=== PATIENT | male | born 1935 | race Caucasian/White ===

== ENCOUNTER 2016-09-04 21:14 | Emergency (ER) | payer MEDICARE, OTHER ==
[2016-09-05] MEDS ORDERED: AMOXICILLIN TR/POT CLAVULANATE 500-125 MG TAB PO ONE (00:58)
[2016-09-05] MEDS ORDERED: AMOXICILLIN TRIHYDRATE 500 MG CAPSULE PO ONE (00:59)
--- NOTE | 2016-09-05 01:01 | ER Document Report ---
ED Animal Bite - General Chief Complaint: Dog Bite Stated Complaint: POSSIBLE DOG BITE Time Seen by Provider: 09/05/16 00:03 Notes: Patient is a 80 year old male that comes to the ED for chief complaint of dog bite with skin tears to his right hand. Patient states that the dog is his son's , he reached over to pet the dog and it snapped at him. Dog is vaccinated. No other injuries reported. He is on Eliquis. Tetanus UTD within 5 years. TRAVEL OUTSIDE OF THE [place] IN LAST 30 DAYS: No - Related Data Allergies/Adverse Reactions: Antacid * [Antacid] Allergy (Unknown, Verified 09/04/16 21:42) cefuroxime [Cefuroxime] Allergy (Unknown, Verified 09/04/16 21:42) fluconazole [Fluconazole] Allergy (Unknown, Verified 09/04/16 21:42) adhesive tape Allergy (Verified 09/04/16 21:42) unknown malaria med Allergy (Unknown, Uncoded 09/04/16 21:42) Past Medical History - General Information source: Patient - Social History Smoking Status: Never Smoker Frequency of alcohol use: None Drug Abuse: None Lives with: Spouse/Significant other Family History: Hypertension - Past Medical History Cardiac Medical History: Reports: Hx Atrial Fibrillation, Hx Congestive Heart Failure, Hx Coronary Artery Disease - PACEMAKER/DEFIB, Hx Heart Attack - X4, Hx Hypercholesterolemia, Hx Hypertension Pulmonary Medical History: Reports: Hx COPD Denies: Hx Asthma, Hx Bronchitis, Hx Pneumonia Neurological Medical History: Reports: Hx Cerebrovascular Accident - 1984. Denies: Hx Seizures Endocrine Medical History: Reports: Hx Hypothyroidism Renal/ Medical History: Denies: Hx Peritoneal Dialysis Musculoskeltal Medical History: Reports Hx Arthritis - GENERALIZED Past Surgical History: Reports: Hx Abdominal Surgery - AAA repair, Hx Cardiac Catheterization - x4, Hx Cardiac Surgery - cabgx2, AICD, Hx Cholecystectomy - Immunizations Hx Diphtheria, Pertussis, Tetanus Vaccination: Yes Hx Pneumococcal Vaccination: 12/26/14 Review of Systems - Review of Systems Constitutional: No symptoms reported EENT: No symptoms reported Cardiovascular: No symptoms reported Respiratory: No symptoms reported Gastrointestinal: No symptoms reported Genitourinary: No symptoms reported Male Genitourinary: No symptoms reported Musculoskeletal: See HPI Skin: See HPI Hematologic/Lymphatic: No symptoms reported Neurological/Psychological: No symptoms reported Physical Exam - Vital signs Vitals: Temp Pulse Resp BP Pulse Ox 98.0 F 78 16 128/74 H 96 09/05/16 01:15 09/05/16 01:15 09/05/16 01:15 09/05/16 01:15 09/05/16 01:15 Interpretation: Normal - General General appearance: Appears well In distress: None - HEENT Head: Normocephalic, Atraumatic Eyes: Normal Pupils: PERRL - Respiratory Respiratory status: No respiratory distress Chest status: Nontender Breath sounds: Normal Chest palpation: Normal - Cardiovascular Rhythm: Regular. No: Tachycardia Heart sounds: Normal auscultation, S1 appreciated, S2 appreciated Murmur: No - Abdominal Inspection: Normal Distension: No distension Bowel sounds: Normal Tenderness: Nontender. No: Tender, Guarding Organomegaly: No organomegaly - Back Back: Normal, Nontender - Extremities General upper extremity: Other - Dorsum of the right hand over the area of the third through fifth metacarpals with 2 skin avulsions, skin tear in between them , minimal bleeding noted. No open repairable wounds. Full range of motion of all fingers, normal sensation, no evidence of tendon laceration, normal wrist exam, normal upper extremity exam otherwise. General lower extremity: Normal inspection, Nontender, Normal color, Normal ROM , Normal temperature, Normal weight bearing. No: Vicente's sign - Neurological Neuro grossly intact: Yes Cognition: Normal Orientation: AAOx4 Trevon Coma Scale Eye Opening: Spontaneous [place] Coma Scale Verbal: Oriented [place] Coma Scale Motor: Obeys Commands Trevon Coma Scale Total: 15 Speech: Normal Motor strength normal: LUE, RUE, LLE, RLE Sensory: Normal - Psychological Associated symptoms: Normal affect, Normal mood - Skin Skin Temperature: Warm Skin Moisture: Dry Skin Color: Normal Course - Re-evaluation Re-evalutation: Two large skin avulsions over the dorsum of the right hand. On careful examination there is no evidence of tendon injury, nerve injury, normal neurovascular examination. The wound not repairable, skin tears with avulsions and thin skin that will not sutured together. Dressings placed after thorough cleaning, Xeroform dressing was applied along with nonabsorbent dressing and padding. Wound care discussed. Placing on antibiotic. Discussed close follow- up for recheck of the wound. Patient states that he plans to follow-up with his orthopedic hand surgeon for this. He states he will follow-up with primary care otherwise. Discussed return precautions in detail. Patient states understanding and agreement. states understanding and agreement. - Vital Signs Vital signs: Temp Pulse Resp BP Pulse Ox 98.0 F 78 16 128/74 H 96 09/05/16 01:15 09/05/16 01:15 09/05/16 01:15 09/05/16 01:15 09/05/16 01:15 Discharge - Discharge Clinical Impression: Skin tear Dog bite Qualifiers: Encounter type: initial encounter Qualified Code(s): W54.0XXA - Bitten by dog, initial encounter Hand laceration Qualifiers: Encounter type: initial encounter Foreign body presence: without foreign body Laterality: right Qualified Code(s): S61.411A - Laceration without foreign body of right hand, initial encounter Condition: Stable Disposition: HOME, SELF-CARE Additional Instructions: You can keep the current dressing on for the next 2-3 days (the yellow dressing ; can change gauze dressing and wrap if needed), I recommend being seen on a close follow-up with your provider for a recheck at that point, take the Augmentin antibiotic as directed, you may also want to take a probiotic to avoid diarrhea. Return immediately if you develop any concerning or worsening symptoms including fever, spreading redness, swelling, discolored drainage, or any other concerning symptoms. Prescriptions: Amox Tr/Potassium Clavulanate [Augmentin 875-125 Tablet] 1 tab PO BID 7 Days
[2016-09-05 01:36] VITALS: BP 128/74
== END 2016-09-05 01:15 | disposition home or self-care (01) ==
LOC: ER 21:14
DX: S61.411A Laceration without foreign body of right hand, initial encounter (principal); W54.0XXA Bitten by dog, initial encounter; I48.91 Unspecified atrial fibrillation; I50.9 Heart failure, unspecified; I25.10 Atherosclerotic heart disease of native coronary artery without angina pectoris; J44.9 Chronic obstructive pulmonary disease, unspecified; I25.2 Old myocardial infarction; E78.00 Pure hypercholesterolemia, unspecified; I11.0 Hypertensive heart disease with heart failure; Z95.810 Presence of automatic (implantable) cardiac defibrillator; Z86.73 Personal history of transient ischemic attack (TIA), and cerebral infarction without residual deficits; Z90.49 Acquired absence of other specified parts of digestive tract
CPT/HCPCS: 99283; A9270 ×2

== ENCOUNTER → 2016-11-02 | Day surgery (SDC) | payer MEDICARE, OTHER ==
--- NOTE | 2016-11-02 15:04 | RADIOLOGY REPORT (SQ) ---
EXAM DESCRIPTION: ARTHRO SHOULDER INJECTION; FLUORO/NEEDLE PLACEMENT COMPLETED DATE/TIME: 11/02/2016 2:13 pm REASON FOR STUDY: PAIN IN RIGHT SHOULDER (M25.511) M25.511 PAIN IN RIGHT SHOULDER COMPARISON: None. FLUOROSCOPY TIME: 16 seconds 2 digital images saved to PACS. LIMITATIONS: None. PROCEDURE: Procedure, risks, benefits and alternative explained to patient who then gave written con sent. The right posterior shoulder was marked and a time-out was called for correct marking verifica tion. Posterior entry site marked using fluoroscopic guidance. Shoulder prepped and draped using st erile technique. Local anesthesia achieved using 1% lidocaine injection. 22 gauge spinal needle intr oduced into the joint space under direct fluoroscopic visualization. Non-ionic contrast instilled to confirm intra-articular position. Additional dilute non-ionic contrast instilled. Needle removed a nd entry site covered with sterile bandage. No immediate complications noted. TECHNIQUE: Digital images acquired during fluoroscopy and stored on PACS. Patient immediately take n to the CT suite for additional imaging. INJECTION LOCATION: Posterior right shoulder. CONTRAST TYPE AND AMOUNT: 1 mL of Isovue-300 was injected to confirm intra-articular needle placement , followed by 10 mL of half strength Isovue-[address] arthrogram, dictated separately IMPRESSION: SUCCESSFUL NEEDLE PLACEMENT AND INJECTION FOR RIGHT SHOULDER CT ARTHROGRAM USING POSTERI OR APPROACH. COMMENT: Quality ID 145: Final reports for procedures using fluoroscopy that document radiation exp osure indices, or exposure time and number of fluorographic images (if radiation exposure indices are not available) TECHNICAL DOCUMENTATION: JOB ID: [id number] [employer]- All Rights Reserved
--- NOTE | 2016-11-02 15:33 | RADIOLOGY REPORT (SQ) ---
EXAM DESCRIPTION: CT RT UPPER EXTREMITY WITH COMPLETED DATE/TIME: 11/02/2016 2:31 pm REASON FOR STUDY: PAIN IN RIGHT SHOULDER (M25.511) M25.511 PAIN IN RIGHT SHOULDER COMPARISON: CT cervical spine 05/24/2015 CT angio chest 03/04/2015 CT chest without contrast 02/10/2015 TECHNIQUE: [facility] with reformatted oblique coronal and ob lique sagittal imaging windowed for bone and soft tissues. All CT scanners at this facility use dose modulation, iterative reconstruction, and/or weight based d osing when appropriate to reduce radiation dose to as low as reasonably achievable (ALARA). [facility]: Dose Right [facility]: CareDose [facility]: Dose Right [facility]: Teradose 4D [facility]: [employer] RADIATION DOSE: Up-to-date CT equipment and radiation dose reduction techniques were employed. CTDIv ol: 29.8 mGy. DLP: 726 mGy-cm. mGy. LIMITATIONS: None. FINDINGS: SOFT TISSUES: No adenopathy or masses in the field of view. There is right lateral lung a pex pleural-parenchymal scarring unchanged from chest CT 02/10/2015 BONY ARCHITECTURE: No lytic or blastic lesions. Bones are osteopenic. GLENOHUMERAL JOINT: Mild chondromalacia and joint space narrowing. No subcortical cyst formation or bulky bony spurring. No malalignment at the glenohumeral joint. ACROMION AND AC JOINT: No widening. No fracture. Mild bony spurring along the undersurface of the d istal clavicle, best shown on coronal oblique reconstruction images 32-35. Mild narrowing of the sub acromial space. ROTATOR CUFF: There is leakage of intra-articular contrast into the subacromial/ subdeltoid bursa, th rough a moderate-sized tear along the anterior half of the supraspinatus tendon best shown on coronal images 32-35 and sagittal reconstruction images 57 through 65. Infraspinatus, subscapularis grossly intact. GLENOID, LABRUM AND BICEPS: Grossly intact. OTHER: No other significant finding. IMPRESSION: Full-thickness tear anterior half of the supraspinatus tendon. TECHNICAL DOCUMENTATION: JOB ID: [id number] Quality ID # [id number]: Final reports with documentation of one or more dose reduction techniques (e.g., Au tomated exposure control, adjustment of the mA and/or kV according to patient size, use of iterative reconstruction technique) 2010 [employer]- All Rights Reserved
== END ==
LOC: RAD 12:32 → EDSTATUS 14:00
PROVIDERS: ATTEND Nuclear Medicine
PROC: BP08ZZZ Plain Radiography of Right Shoulder (ICD-10-PCS; principal; 2016-11-02)
DX: M75.121 Complete rotator cuff tear or rupture of right shoulder, not specified as traumatic (principal); M25.511 Pain in right shoulder
CPT/HCPCS: 23350; 77002

== ENCOUNTER → 2016-12-12 | Outpatient (CLI) | payer MEDICARE, OTHER ==
--- NOTE | 2016-12-12 16:00 | RADIOLOGY REPORT (SQ) ---
EXAM DESCRIPTION: SOFT TISSUE NECK COMPLETED DATE/TIME: 12/12/2016 3:44 pm REASON FOR STUDY: UNSP FOREIGN BODY IN PHARYNX CAUSING OTH INJURY, INIT ENCNTR T17.208A UNSP FOREIG N BODY IN PHARYNX CAUSING OTH INJURY, IN COMPARISON: None. NUMBER OF VIEWS: Two views. TECHNIQUE: AP and lateral radiographic image of the soft tissues of the neck. LIMITATIONS: None. FINDINGS: EPIGLOTTIS: Normal. Contour normal. Aryepiglottic folds normal. PREVERTEBRAL SOFT TISSUES: Normal. No soft tissue swelling. SUBGLOTTIC AREA: Normal as assessed, overlying external artifact limits. RETROPHARYNGEAL SPACE: Normal. No soft tissue masses. BONES: Cervical spondylosis LUNG APICES: Normal. OTHER: Arrow indicates region of interest in the mid neck just below the level of the hyoid bone. No definite radiopaque foreign body allowing for expected cartilage calcification. IMPRESSION: NEGATIVE STUDY OF THE SOFT TISSUES OF THE NECK. TECHNICAL DOCUMENTATION: JOB ID: [id number] [employer]- All Rights Reserved
== END ==
LOC: OD 15:10
PROVIDERS: ATTEND Internal Medicine
DX: T17.208A Unspecified foreign body in pharynx causing other injury, initial encounter (principal); X58.XXXA Exposure to other specified factors, initial encounter; Y93.9 Activity, unspecified; Y92.9 Unspecified place or not applicable; Y99.9 Unspecified external cause status
CPT/HCPCS: 70360

== ENCOUNTER → 2017-06-21 | Outpatient (CLI) | payer MEDICARE, OTHER ==
--- NOTE | 2017-06-21 14:40 | RADIOLOGY REPORT (SQ) ---
EXAM DESCRIPTION: NM GASTRIC EMPTYING STUDY COMPLETED DATE/TIME: 06/21/2017 2:12 pm REASON FOR STUDY: T18.9XXA FOREIGN BODY OF ALIMENTARY TRACT, PART UNSPECIFIED, INITIAL ENCOUN T18.9X XA FOREIGN BODY OF ALIMENTARY TRACT, PART UNSP, INIT E COMPARISON: None. RADIONUCLIDE AND DOSE: 2.0 millicuries Tc-99m Sulfur Colloid. A wide variety of solid foods have been used. The route of agent administration: Oral. TECHNIQUE: Serial images acquired to 4 hours with each image recorded over a 30 minute time frame. I mage intensity values plotted with respect to time with linear regression algorithm. LIMITATIONS: None. FINDINGS: Patient was observed for 4 hours. Gastric emptying at 60 minutes was 13%. Gastric emptying at 90 minutes was 19%. Gastric emptying at 120 minutes was 26% Gastric emptying at 180 minutes with 36% Gastric emptying at 240 minutes was 52%. IMPRESSION: Decreased gastric emptying. TECHNICAL DOCUMENTATION: JOB ID: [id number] [employer]- All Rights Reserved Reading location - IP/workstation name: [email or web address]
== END ==
LOC: RAD 07:39
PROVIDERS: ATTEND Internal Medicine Gastroenterology
DX: T18.2XXA Foreign body in stomach, initial encounter (principal); X58.XXXA Exposure to other specified factors, initial encounter
CPT/HCPCS: 78264; A9541

== ENCOUNTER → 2017-08-14 | Outpatient (CLI) | payer MEDICARE, OTHER ==
--- NOTE | 2017-08-14 14:49 | RADIOLOGY REPORT (SQ) ---
EXAM DESCRIPTION: CT CHEST WITHOUT COMPLETED DATE/TIME: 08/14/2017 1:02 pm REASON FOR STUDY: R91.8 OTHER NONSPECIFIC ABNORMAL FINDING OF LUNG FIELD R91.8 OTHER NONSPECIFIC AB NORMAL FINDING OF LUNG FIELD COMPARISON: CT chest 02/09/2007, 02/10/2015, 03/04/2015 TECHNIQUE: CT scan performed of the chest without intravenous contrast. Images reviewed with lung, soft tissue and bone windows. Reconstructed coronal and sagittal MPR images reviewed. All images st ored on PACS. All CT scanners at this facility use dose modulation, iterative reconstruction, and/or weight based d osing when appropriate to reduce radiation dose to as low as reasonably achievable (ALARA). [facility]: Dose Right [facility]: CareDose [facility]: Dose Right [facility]: Teradose 4D [facility]: [facility] RADIATION DOSE: CT Rad equipment meets quality standard of care and radiation dose reduction techniq ues were employed. CTDIvol: 18.3 mGy. DLP: 757 mGy-cm. mGy. LIMITATIONS: No technical limitations. FINDINGS: LUNGS AND PLEURA: Stable scarring is present in the periphery of the right upper lobe on a xial image 29 through 32. No worrisome pulmonary nodules. No focal infiltrates. No pleural effusion. No pneumothorax. Airwa ys are patent. HILAR AND MEDIASTINAL STRUCTURES: No identified masses or abnormal nodes. No obvious aneurysm. HEART AND VASCULAR STRUCTURES: Pacemaker. CABG. No cardiomegaly or pericardial effusion UPPER ABDOMEN: Splenomegaly, 16 cm in greatest AP diameter. Finding is similar compared to previous studies. Post cholecystectomy THYROID AND OTHER SOFT TISSUES: No masses. No adenopathy. BONES: No significant finding. HARDWARE: None in the chest. OTHER: No other significant findings. IMPRESSION: Stable scarring in the periphery of the right upper lobe as compared to previous studies TECHNICAL DOCUMENTATION: JOB ID: [id number] Quality ID # [id number]: Final reports with documentation of one or more dose reduction techniques (e.g., Au tomated exposure control, adjustment of the mA and/or kV according to patient size, use of iterative reconstruction technique) 2010 [employer]- All Rights Reserved Reading location - IP/workstation name: [email or web address]
== END ==
LOC: RAD 14:24
PROVIDERS: ATTEND Internal Medicine Critical Care Medicine
DX: R91.8 Other nonspecific abnormal finding of lung field (principal)
CPT/HCPCS: 71250

== ENCOUNTER 2018-04-18 08:17 | Day surgery (SDC) | payer MEDICARE, OTHER ==
[~2018-04-18 08:17] MED LIST: PROPOFOL INJ 200 MG/20 ML VIAL IV ONE
--- NOTE | 2018-04-18 11:21 | Operative Report ---
Operative Report DATE OF SURGERY: 04/18/18 Operative Report: The risks, benefits and alternatives of the procedure including the risk of bleeding, perforation requiring surgery have been explained to the patient in detail and informed consent has been obtained. Patient is placed in a left, lateral decubital position. Timeout was called. Propofol medication is administered. Rectal examination has been performed and it did not reveal any masses, tears or fissures. An Olympus videoscope was introduced into the pa tiejohn's rectum. The scope was then carefully advanced all the way to the cecum. The cecum was identified by the usual anatomical landmarks of the ileocecal valve as well as the appendiceal office. Photodocumentation is obtained. The scope was then sequentially pulled back via the various segments of the colon including the ascending colon, hepatic flexure, transverse colon, splenic flexure, descending colon and finally into the rectosigmoid portions of the colon. Retroflexion maneuver was performed. PREOPERATIVE DIAGNOSIS: Personal history of polyp, change of bowel habits POSTOPERATIVE DIAGNOSIS: 2 small cecal polyps that are noted, attempted snare polypectomy but no tissue retrieved. Significant diverticulosis without any evidence of diverticulitis. Internal hemorrhoids OPERATION: Colonoscopy with snare polypectomy SURGEON: DEAN SUMNER ANESTHESIA: LMAC TISSUE REMOVED OR ALTERED: As noted above. COMPLICATIONS: None. ESTIMATED BLOOD LOSS: None. INTRAOPERATIVE FINDINGS: As noted above. PROCEDURE: Patient tolerated the procedure well. No immediate postprocedure comp occasions are noted. Patient discharged in good condition. Discharge date 04/18/2018. Discharge diet: Regular. Discharge activity: Regular. 2-3-week follow-up to discuss findings. Patient is instructed to call the office and proceed to the emergency room if t here are any further problems or questions. Wait on the pathology. 3-5-year surveillance colonoscopy.
[2018-04-18 11:29] VITALS: BP 146/76
== END 2018-04-18 10:59 | disposition home or self-care (01) ==
LOC: END 08:17
PROVIDERS: ATTEND Internal Medicine Gastroenterology
DX: D12.0 Benign neoplasm of cecum (principal); K57.30 Diverticulosis of large intestine without perforation or abscess without bleeding; K64.8 Other hemorrhoids; E03.9 Hypothyroidism, unspecified; I11.9 Hypertensive heart disease without heart failure; D50.0 Iron deficiency anemia secondary to blood loss (chronic); D69.6 Thrombocytopenia, unspecified; E78.2 Mixed hyperlipidemia; I25.10 Atherosclerotic heart disease of native coronary artery without angina pectoris; I25.2 Old myocardial infarction; J44.9 Chronic obstructive pulmonary disease, unspecified; I48.91 Unspecified atrial fibrillation; Z79.01 Long term (current) use of anticoagulants; Z95.0 Presence of cardiac pacemaker; Z79.899 Other long term (current) drug therapy; Z79.51 Long term (current) use of inhaled steroids; Z88.8 Allergy status to other drugs, medicaments and biological substances
CPT/HCPCS: 45385; J2704; 811

== ENCOUNTER 2018-06-06 00:42 | Emergency (ER) | payer MEDICARE, OTHER ==
[2018-06-06] MEDS ORDERED: LIDOCAINE 1%/EPINEPHRINE INJ 20 ML VIAL ONE (01:19)
[2018-06-06] MEDS ORDERED: TRANEXAMIC ACID INJ/PF 1,000 MG/10 ML SDV IV ONE ×2 (01:19→01:43)
[2018-06-06] MEDS ORDERED: LIDOCAINE 1%/EPINEPHRINE INJ 20 ML VIAL INJ ONE (01:45)
[2018-06-06] MEDS ORDERED: AMOXICILLIN TR/POT CLAVULANATE 500-125 MG TAB PO ONE (02:29)
--- NOTE | 2018-06-06 02:33 | ER Document Report ---
ED General - General Chief Complaint: Dog Bite Stated Complaint: DOG BITE Time Seen by Provider: 06/06/18 00:58 Primary Care Provider: FABIAN GRIFFITH MD [Primary Care Provider] - Follow up in 3-5 days Notes: Patient is an 82-year-old male with a past medical history of atrial fibrillation currently anticoagulated on apixaban, hypertension, presents after his dog accidentally bit his left dorsal hand while playing with him. Patient states that he threw the ball, dog apparently was reaching for the ball and missed the ball striking the patient's hand with his mouth. The patient reports that he immediately noticed significant bleeding from the hand which they attempted to control with direct pressure at home without results. Nothing seemed to worsen symptoms. He does note a throbbing, aching, constant pain to t he hand since the injury. Tetanus is up-to-date. 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 Has not seen his primary doctor regarding today's concerns. Denies any injuries to any other locations. TRAVEL OUTSIDE OF THE [place] IN LAST 30 DAYS: No - Related Data Allergies/Adverse Reactions: Antacid * [Antacid] Allergy (Unknown, Verified 04/18/18 08:40) cefuroxime [Cefuroxime] Allergy (Unknown, Verified 04/18/18 08:40) fluconazole [Fluconazole] Allergy (Unknown, Verified 04/18/18 08:40) adhesive tape Allergy (Verified 04/18/18 08:40) unknown malaria med Allergy (Unknown, Uncoded 04/18/18 08:40) Past Medical History - General Information source: Patient - Social History Smoking Status: Never Smoker Frequency of alcohol use: None Drug Abuse: None Lives with: Spouse/Significant other Family History: Hypertension Patient has suicidal ideation: No Patient has homicidal ideation: No - Past Medical History Cardiac Medical History: Reports: Hx Atrial Fibrillation, Hx Congestive Heart Failure, Hx Coronary Artery Disease, Hx Heart Attack - 1978, 1996, 1997, 2013, Hx Hypercholesterolemia, Hx Hypertension Pulmonary Medical History: Denies: Hx Asthma, Hx Bronchitis, Hx COPD, Hx Pneumonia Neurological Medical History: Reports: Hx Cerebrovascular Accident. Denies: Hx Seizures Endocrine Medical History: Reports: Hx Hypothyroidism Renal/ Medical History: Denies: Hx Peritoneal Dialysis Musculoskeletal Medical History: Reports Hx Arthritis Past Surgical History: Reports: Hx Abdominal Surgery - AAA repair, Hx Cardiac Catheterization - x4, Hx Cardiac Surgery - cabgx2, AICD, Hx Cholecystectomy - Immunizations Hx Diphtheria, Pertussis, Tetanus Vaccination: - UNKNOWN Hx Pneumococcal Vaccination: 12/26/14 Review of Systems - Review of Systems Notes: Constitutional: Negative for fever. Eyes: Negative for visual changes. ENT: Negative for facial injury Cardiovascular: Negative for chest injury. Respiratory: Negative for shortness of breath. Gastrointestinal: Negative for abdominal injury. Genitourinary: Negative for genital injury Musculoskeletal: Positive for left hand injury Skin: Positive for left skin avulsion over the hand Neurological: Negative for head injury. Physical Exam - Vital signs Vitals: Temp Pulse Resp BP Pulse Ox 97.6 F 71 18 209/122 H 100 06/06/18 00:51 06/06/18 00:51 06/06/18 00:51 06/06/18 00:51 06/06/18 00:51 Interpretation: Hypertensive Notes: PHYSICAL EXAMINATION: GENERAL: Well-appearing, well-nourished and in no acute distress. HEAD: Atraumatic, normocephalic. EYES: sclera anicteric, conjunctiva are normal. ENT: Moist mucous membranes. NECK: Normal range of motion LUNGS: Normal work of breathing HEART: 2+ radial pulses bilaterally EXTREMITIES: no pitting or edema. No cyanosis. NEUROLOGICAL: No focal neurological deficits. Moves all extremities spontaneously and on command. PSYCH: Normal mood, normal affect. SKIN: Warm, Dry, normal turgor, there is a large skin avulsion over the central dorsum of the hand with active, brisk bleeding. Course - Re-evaluation Re-evalutation: 06/06/18 02:30 Patient presents with a skin avulsion over the dorsum of the left hand. He was bleeding heavily, is anticoagulated on Xarelto. On initial assessment bleeding was unable to be controlled by direct pressure. I did instill lidocaine with epinephrine followed by direct instillation of tranexamic acid in the area. Direct pressure was then held using a quick clot gauze. After 15 minutes I did recheck the area, bleeding much improved, additional TXA instilled to the area of to a small remaining bleeding vessel. Pressure again applied with effective complete control of bleeding. The patient has had a fresh quick clot gauze applied and a wrap placed on the area and been advised to please This area covered until approximately 12 hours from now at which time we can allow for dressing change. He has been started on Augmentin for prophylaxis as this was an accidental dog bite from his small terrier type dog while he was playing with the dog. Tetanus is already up-to-date. In terms of any concern of neurovascular injury the patient does have capillary refill less than 2 seconds in all digits of the affected hand. 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 He states there is no difference in his current exam from normal. There is no skin tissue to approximate and given that this is a animal-based injury would not be appropriate for repair. At this time will discharge with return precautions and follow-up recommendations. Verbal discharge instructions given a the bedside and opportunity for questions given. Medication warnings reviewed. Patient is in agreement with this plan and has verbalized understanding of return precautions and the need for primary care follow-up in the next 24-72 hours. - Vital Signs Vital signs: Temp Pulse Resp BP Pulse Ox 97.6 F 87 16 127/87 H 94 06/06/18 00:51 06/06/18 03:18 06/06/18 03:18 06/06/18 03:18 06/06/18 03:18 Discharge - Discharge Clinical Impression: Bleeding from wound Avulsion of skin of left hand Qualifiers: Encounter type: initial encounter Qualified Code(s): S61.402A - Unspecified open wound of left hand, initial encounter Condition: Good Disposition: HOME, SELF-CARE Additional Instructions: Please monitor very closely for any signs of infection from your dog bite including spreading redness from the area, pus from the wound, or worsening pain. Clean the area twice daily with soap and water and then apply topical antibiotic ointment. Please take all the antibiotics that you were prescribed until they are gone. Follow-up with your primary care physician as needed. Please keep the current dressing in place until 12 hours from time of discharge at which time you can begin following the above dressing change regimen. Please be careful to avoid causing the bleeding although again if you have recurrence of bleeding hold direct pressure to the area for 15 minutes. If this does not resolve the bleeding please return to the emergency department. Prescriptions: Amox Tr/Potassium Clavulanate [Augmentin 875-125 Tablet] 1 tab PO BID 5 Days tablet Amox Tr/Potassium Clavulanate [Augmentin 400-57 mg/5 mL Suspension] 10 ml PO BID 5 Days bottle Referrals: FABIAN GRIFFTIH MD [Primary Care Provider] - Follow up in 3-5 days
[2018-06-06 03:18] VITALS: BP 127/87
== END 2018-06-06 03:27 | disposition home or self-care (01) ==
LOC: ER 00:42
DX: S61.452A Open bite of left hand, initial encounter (principal); W54.0XXA Bitten by dog, initial encounter; I48.91 Unspecified atrial fibrillation; I50.9 Heart failure, unspecified; I25.10 Atherosclerotic heart disease of native coronary artery without angina pectoris; E78.00 Pure hypercholesterolemia, unspecified; I11.0 Hypertensive heart disease with heart failure; Z79.02 Long term (current) use of antithrombotics/antiplatelets; Z86.73 Personal history of transient ischemic attack (TIA), and cerebral infarction without residual deficits; Z95.810 Presence of automatic (implantable) cardiac defibrillator; Z90.49 Acquired absence of other specified parts of digestive tract; I25.2 Old myocardial infarction
CPT/HCPCS: 99283; 96374; A9270; J3490 ×2

== ENCOUNTER → 2018-06-11 | Outpatient (CLI) | payer MEDICARE, OTHER ==
--- NOTE | 2018-06-11 15:18 | RADIOLOGY REPORT (SQ) ---
EXAM DESCRIPTION: HAND LEFT 3 VIEWS COMPLETED DATE/TIME: 06/11/2018 3:02 pm REASON FOR STUDY: UNSPECIFIED OPEN WOUND OF LEFT HAND, SUBSEQUENT ENCOUNTER S61.402D UNSPECIFIED OP EN WOUND OF LEFT HAND, SUBSEQUENT ENC COMPARISON: None. EXAM PARAMETERS: NUMBER OF VIEWS: Three views. TECHNIQUE: AP, lateral and oblique radiographic images acquired of the left hand. LIMITATIONS: None. FINDINGS: MINERALIZATION: Osteopenia. BONES: No acute fracture dislocation. Degenerative changes with joint space loss, subchondral sclero sis and mild osteophytosis greatest at the 5th proximal interphalangeal joint and 1st and 2nd carpal/ metacarpal joints. JOINTS: No effusions. SOFT TISSUES: No radiopaque foreign body. Mild soft tissue swelling about the hand. OTHER: No other significant finding. IMPRESSION: 1. No evidence of acute bony abnormality or radiopaque foreign body. 2. Osteopenia with scattered osteoarthritic changes greatest at the 1st and 2nd carpometacarpal join ts. TECHNICAL DOCUMENTATION: JOB ID: [id number] [employer]- All Rights Reserved Reading location - IP/workstation name: [email or web address]
== END ==
LOC: OD 14:47
PROVIDERS: ATTEND Physician Assistant
DX: S61.402D Unspecified open wound of left hand, subsequent encounter (principal); X58.XXXD Exposure to other specified factors, subsequent encounter

== ENCOUNTER → 2018-07-11 | Outpatient (CLI) | payer MEDICARE, OTHER ==
--- NOTE | 2018-07-11 15:32 | RADIOLOGY REPORT (SQ) ---
EXAM DESCRIPTION: CT SINUSES FOR ENT COMPLETED DATE/TIME: 07/11/2018 3:01 pm REASON FOR STUDY: J33.9 NASAL POLYP, UNSPECIFIED J33.9 NASAL POLYP, UNSPECIFIED COMPARISON: None. TECHNIQUE: Noncontrast scanning through the paranasal sinuses using bone algorithm. Reconstructed MPR images reviewed. All images stored on PACS. Images acquired for image guided surgery. All CT scanners at this facility use dose modulation, iterative reconstruction, and/or weight based d osing when appropriate to reduce radiation dose to as low as reasonably achievable (ALARA). [facility]: Dose Right [facility]: CareDose [facility]: Dose Right [facility]: Teradose 4D [facility]: Circular RADIATION DOSE: 46 mGy. FINDINGS: NASAL PASSAGES: Clear. No polyps or masses. OSTEOMEATAL UNITS AND NASOFRONTAL DUCTS: Bilateral maxillary outlets and nasofrontal ducts are opacif ied with mucous membrane thickening. No agger nasi or Natalie cells. MAXILLARY SINUSES: Completely opacified right maxillary sinus. Mucous membrane circumference thicken ing left maxillary sinus. Maxillary sinus outlets are opacified by mucous membrane thickening ETHMOID SINUSES: Near completely opacified with fluid/ mucous membrane thickening. SPHENOID SINUSES: Circumferential mucous membrane thickening No sphenoethmoid air cells or pneumatize d pterygoid recess. No pneumatized dorsal sella. FRONTAL SINUSES: Mucous membrane thickening at the fronto ethmoid junctions bilaterally. MASTOID AIR CELLS: Clear. Small and sclerotic ORBITS: Post bilateral cataract surgery. NASAL SEPTUM: Mild leftward nasal septal bowing with small left nasal septal spur on coronal image 13 1/410 TEMPOROMANDIBULAR JOINTS: Osteoarthritis TURBINATES: No pneumatized turbinates. MUCOPERIOSTEAL THICKENING: No. MUCOCELE: No. OTHER: No other significant findings. IMPRESSION: Inflammatory changes of the bilateral fronto ethmoid junctions, ethmoid air cells, maxil raven and sphenoid sinuses. TECHNICAL DOCUMENTATION: JOB ID: [id number] Quality ID # [id number]: Final reports with documentation of one or more dose reduction techniques (e.g., Au tomated exposure control, adjustment of the mA and/or kV according to patient size, use of iterative reconstruction technique) 2010 [employer]- All Rights Reserved Reading location - IP/workstation name: [email or web address]
== END ==
LOC: RAD 14:12
PROVIDERS: ATTEND Otolaryngology
DX: J33.9 Nasal polyp, unspecified (principal)
CPT/HCPCS: 70486

== ENCOUNTER → 2018-10-14 | Outpatient (CLI) | payer MEDICARE, OTHER ==
--- NOTE | 2018-10-14 15:49 | RADIOLOGY REPORT (SQ) ---
EXAM DESCRIPTION: HIP RIGHT AP/LATERAL COMPLETED DATE/TIME: 10/14/2018 3:41 pm REASON FOR STUDY: PAIN IN RIGHT HIP M25.551 PAIN IN RIGHT HIP COMPARISON: None. NUMBER OF VIEWS: Two views. TECHNIQUE: AP and frog-leg view of the right hip. LIMITATIONS: None. FINDINGS: MINERALIZATION: Normal. RIGHT HIP: There is joint space narrowing. No acute fracture or dislocation. OPPOSITE HIP: No fracture or dislocation. No worrisome bone lesions. SOFT TISSUES: No findings. OTHER: There is vascular calcification. Common iliac artery stents are in place. IMPRESSION: Asymmetric joint space narrowing in the right hip. No acute fracture or dislocation. TECHNICAL DOCUMENTATION: JOB ID: [id number] [employer]- All Rights Reserved Reading location - IP/workstation name: [email or web address]
== END ==
LOC: OD 15:02
PROVIDERS: ATTEND Internal Medicine
DX: M25.551 Pain in right hip (principal)